=== PATIENT | male | born 1985 | race Caucasian/White ===

== ENCOUNTER 2022-07-18 08:47 | Emergency (ER) | payer SELFPAY ==
[2022-07-18] MEDS ORDERED: Lidocaine 2% Viscous Solution 15 ML UD PO ONE (10:43)
[2022-07-18] MEDS ORDERED: Benzocaine 20% Topical Spray UD MUCMEM ONE (10:43)
== END 2022-07-18 10:53 | disposition home or self-care (01) ==
LOC: MW.ED 08:47
DX: K04.7 Periapical abscess without sinus (principal)
CPT/HCPCS: 99282; A9270; 99283

== ENCOUNTER 2022-10-05 03:05 | Emergency (ER) | payer SELFPAY ==
[2022-10-05] MEDS ORDERED: Ibuprofen 600 MG Tab PO ONE (03:24)
[2022-10-05] MEDS ORDERED: Ondansetron 4 MG Tab.DIS PO ONE (03:24)
[2022-10-05] MEDS ORDERED: Acetaminophen 500 MG Tab PO ONE (03:25)
[2022-10-05 03:59] LABS: CORONAVIRUS COVID-19 NAA POSITIVE (NEGATIVE); INFLUENZA A NAA NEGATIVE (NEGATIVE); INFLUENZA B NAA NEGATIVE (NEGATIVE)
== END 2022-10-05 04:20 | disposition home or self-care (01) ==
LOC: MW.ED 03:05
DX: U07.1 COVID-19 (principal)
CPT/HCPCS: 0240U; 99284; A9270

== ENCOUNTER 2024-01-05 17:13 | Emergency (ER) | payer SELFPAY | END 2024-01-05 18:00 | disposition home or self-care (01) | LOC: MW.ED 17:13 | DX: K04.7 Periapical abscess without sinus (principal) | CPT/HCPCS: 99282 ==

== ENCOUNTER 2025-02-22 13:07 | Emergency (ER) | payer SELFPAY ==
[2025-02-22] MEDS ORDERED: Sodium Chloride 0.9% 10 ML Syringe FLUSH PRN (13:29)
[2025-02-22] MEDS: Sodium Chloride 0.9% 1,000 ML IV ONE (14:13)
[2025-02-22 14:36] LABS: CALCIUM 9.6 mg/dL (8.5-10.1); CARBON DIOXIDE,CO2 28.8 mmol/L (21.0-32.0); CREATININE 1.3 mg/dL (0.8-1.3); EST CRCL DRUG DOSING (CG) 72.74 mL/min
== END 2025-02-22 15:14 | disposition home or self-care (01) ==
LOC: MW.ED 13:07
DX: J10.1 Influenza due to other identified influenza virus with other respiratory manifestations (principal)
CPT/HCPCS: 36415; 80048; 87428; 96360; 99284; J7030; 99283

== ENCOUNTER 2025-05-09 01:30 | Emergency (ER) | payer SELFPAY ==
[2025-05-09] MEDS: Albuterol/Ipratropium 3.0-0.5 MG/3 ML Neb Soln NEB ONE (01:48)
[2025-05-09] MEDS: methylPREDNISolone Sodium Succinate 40 MG/1 ML SDV IM ONE (01:48)
== END 2025-05-09 02:53 | disposition home or self-care (01) ==
LOC: MW.ED 01:30
DX: J45.901 Unspecified asthma with (acute) exacerbation (principal); Z75.3 Unavailability and inaccessibility of health-care facilities
CPT/HCPCS: 71045; 93005; 96372; 99285; J2919; J7620; 93010; 99284; A9270-GY

== ENCOUNTER 2025-09-17 10:36 | Emergency (ER) | payer SELFPAY ==
[2025-09-17] MEDS: Benzocaine 20% Topical Spray UD MUCMEM ONE (11:26)
[2025-09-17] MEDS: Lidocaine 2% Viscous Solution 15 ML UD PO ONE (11:26)
== END 2025-09-17 11:29 | disposition home or self-care (01) ==
LOC: MW.ED 10:36
DX: K04.7 Periapical abscess without sinus (principal)
CPT/HCPCS: 99282; A9270; J3490; 99283

== ENCOUNTER 2025-10-23 16:34 | Emergency (ER) | payer SELFPAY ==
[2025-10-23] MEDS ORDERED: Ketorolac 30 MG/ML SDV IM ONE (18:27)
[2025-10-23] MEDS: Benzocaine 20% Topical Spray UD MUCMEM ONE (18:34)
[2025-10-23] MEDS: Lidocaine 2% Viscous Solution 15 ML UD PO ONE (18:34)
== END 2025-10-23 18:56 | disposition home or self-care (01) ==
LOC: MW.ED 16:34
DX: K02.9 Dental caries, unspecified (principal); G89.29 Other chronic pain; K08.89 Other specified disorders of teeth and supporting structures; Z79.899 Other long term (current) drug therapy
CPT/HCPCS: 99283; A9270; J3490; 93010; 99284